=== PATIENT | female | born 1980 | race American Indian/Alaskan Native ===

== ENCOUNTER 2016-08-25 09:02 | Emergency (ER) | payer MEDICAID, OTHER ==
[2016-08-25] MEDS ORDERED: NORCO 5/325 PO ONE (10:12)
--- NOTE | 2016-08-25 10:17 | Emergency Department Report ---
- General Chief Complaint: Upper Respiratory Infection Stated Complaint: CHEST PAIN/BODY ACHES Time Seen by Provider: 08/25/16 10:07 Source: patient Mode of arrival: Ambulatory Limitations: No Limitations - History of Present Illness MD Complaint: fever, cough, nasal congestion, sinus pain -: Gradual, hour(s) (12) Severity: mild Quality: aching Consistency: constant Associated Symptoms: fever, chills, myalgias, headache, rhinorrhea, nasal congestion, sore throat, cough, nausea, vomiting - Related Data Home Medications Medication Instructions Recorded Confirmed Last Taken Ibuprofen [Motrin 800 MG tab] 800 mg PO TID PRN 02/05/13 02/05/13 02/04/13 21:30 traMADol [Ultram 50 MG tab] 50 mg PO Q6HR PRN 02/05/13 02/05/13 Unknown Previous Rx's Medication Instructions Recorded Last Taken Type Famotidine [Pepcid] 40 mg PO QHS #30 tablet 02/05/13 Unknown Rx ALBUTEROL Inhaler [ProAir HFA 2 puff IH QID PRN #1 inhalation 08/25/16 Unknown Rx Inhaler] Oseltamivir [Tamiflu] 75 mg PO BID #10 cap 08/25/16 Unknown Rx Prednisone [predniSONE ([facility]) ER 50 mg PO QDAY #5 tablet. 08/25/16 Unknown Rx TAB] Promethazine [Phenergan TAB] 25 mg PO Q6HR PRN #25 tab 08/25/16 Unknown Rx Allergies Allergy/AdvReac Type Severity Reaction Status Date / Time No Known Allergies Allergy Verified 08/25/16 09:38 ED Review of Systems ROS: Stated complaint: CHEST PAIN/BODY ACHES Other details as noted in HPI Patient states her son was just diagnosed with influenza and is taking Tamiflu and now she has same signs and symptoms that started yesterday morning Constitutional: chills, fever, malaise Eyes: denies: eye pain, eye discharge, vision change ENT: throat pain Respiratory: cough Cardiovascular: denies: chest pain, palpitations, syncope Musculoskeletal: arthralgia, myalgia Skin: denies: rash, lesions ED Past Medical Hx - Past Medical History Additional medical history: OBESITY - Surgical History Additional Surgical History: - Social History Smoking Status: Current Every Day Smoker Substance Use Type: None - Medications Home Medications: Home Medications Medication Instructions Recorded Confirmed Last Taken Type Famotidine [Pepcid] 40 mg PO QHS #30 tablet 02/05/13 Unknown Rx Ibuprofen [Motrin 800 MG tab] 800 mg PO TID PRN 02/05/13 02/05/13 02/04/13 21: 30 History traMADol [Ultram 50 MG tab] 50 mg PO Q6HR PRN 02/05/13 02/05/13 Unknown History ALBUTEROL Inhaler [ProAir HFA 2 puff IH QID PRN #1 inhalation 08/25/16 Unknown Rx Inhaler] Oseltamivir [Tamiflu] 75 mg PO BID #10 cap 08/25/16 Unknown Rx Prednisone [predniSONE ([facility]) ER 50 mg PO QDAY #5 tablet. 08/25/16 Unknown Rx TAB] Promethazine [Phenergan TAB] 25 mg PO Q6HR PRN #25 tab 08/25/16 Unknown Rx ED Physical Exam - General Limitations: No Limitations General appearance: alert, in no apparent distress - Head Head exam: Present: atraumatic, normocephalic - Eye Eye exam: Present: normal appearance - ENT ENT exam: Present: mucous membranes moist - Neck Neck exam: Present: normal inspection. Absent: tenderness, meningismus - Respiratory Respiratory exam: Present: normal lung sounds bilaterally. Absent: respiratory distress, wheezes, rales, rhonchi, stridor - Cardiovascular Cardiovascular Exam: Present: regular rate - Neurological Exam Neurological exam: Present: alert, oriented X3 ED Course Vital Signs 08/25/16 09:30 Temperature 100.3 F H Pulse Rate 105 H Respiratory 26 H Rate Blood Pressure 156/82 O2 Sat by Pulse 100 Oximetry Critical care attestation.: If time is entered above; I have spent that time in minutes in the direct care of this critically ill patient, excluding procedure time. ED Disposition Clinical Impression: Influenza Disposition: DISCHARGED TO HOME OR SELFCARE Is pt being admited?: No Condition: Stable Instructions: Influenza (ED) Prescriptions: ALBUTEROL Inhaler [ProAir HFA Inhaler] 2 puff IH QID PRN #1 inhalation PRN Reason: Shortness Of Breath Oseltamivir [Tamiflu] 75 mg PO BID #10 cap Prednisone [predniSONE ([facility]) ER TAB] 50 mg PO QDAY #5 tablet. Promethazine [Phenergan TAB] 25 mg PO Q6HR PRN #25 tab PRN Reason: Nausea Referrals: PRIMARY CARE, [Primary Care Provider] - 3-5 Days Forms: Work/School Release Form(ED)
[2016-08-25] MEDS ORDERED: PHENERGAN ONE (10:36)
[2016-08-25] MEDS ORDERED: PHENERGAN PO ONE (10:40)
[2016-08-25 10:59] VITALS: BP 123/65
== END 2016-08-25 10:57 | disposition home or self-care (01) ==
LOC: ED 09:02
DX: R50.9 Fever, unspecified (principal); R05 Cough; R09.81 Nasal congestion; Z53.21 Procedure and treatment not carried out due to patient leaving prior to being seen by health care provider
CPT/HCPCS: Q0169